=== PATIENT | male | born 1935 | race Caucasian/White ===

== ENCOUNTER → 2019-11-22 | Outpatient (CLI) | payer MEDICARE | END | disposition home or self-care (01) | LOC: CVU 08:41 | PROVIDERS: ATTEND Surgery | DX: I65.23 Occlusion and stenosis of bilateral carotid arteries (principal); I10 Essential (primary) hypertension | CPT/HCPCS: 93880 ==

== ENCOUNTER 2020-10-15 04:50 | Inpatient (IN) | payer MEDICARE ==
[~2020-10-15] VITALS: Ht 177.8 cm; Wt 70.9 kg
[2020-10-15] MEDS ORDERED: SODIUM CHLORIDE FLUSH 10ML SYR IVF ONE (05:30)
--- NOTE | 2020-10-15 05:38 | NUR ---
PT BIB [facility] FOR CP THAT "FELT LIKE WHEN I HAD A HEART ATTACK IN 1973". PT TOOK ONE OF HIS WIFES TRAMADOL AND WENT BACK TO BED AND THEN BECAME NAUSEAOUS AND POSITIVE LOC. PT IS AAOX4. NADN. CHEST PAIN IS RELIEVED. PT PLACED ON MONITOR. SIDE RAILS UP. CALL LIGHT IN REACH. WILL CONTINUE TO MONITOR.
[2020-10-15] MEDS: SODIUM CHLORIDE 0.9% 1,000 ML IV SCH ×2 (06:00→21:34)
[2020-10-15 06:03] LABS: BASOPHILS % (AUTO) 0 % (0-1); EOSINOPHILS % (AUTO) 0 % (1-7); LYMPHOCYTES % (AUTO) 9 % (22-44); MEAN CORPUSCULAR HEMOGLOBIN 31.4 pg (27.5-34.5); MEAN CORPUSCULAR HGB CONC 32.9 g/dL (33.2-36.2); MEAN PLATELET VOLUME 7.5 fL (7.4-10.4); MONOCYTES % (AUTO) 4 % (2-9); NEUTROPHILS % (AUTO) 88 % (42-75); PLATELET COUNT 368 x10^3/uL (130-400); RED BLOOD COUNT 3.61 x10^6/uL (4.38-5.82); RED CELL DISTRIBUTION WIDTH 17.9 % (9.4-14.8)
[2020-10-15 06:17] LABS: ALBUMIN 2.6 g/dL (3.4-5.0); ANION GAP 12 mmol/L (5-15); CALCIUM 9.7 mg/dL (8.5-10.1); CHLORIDE 99 mmol/L (98-107); CREATININE 1.86 mg/dL (0.7-1.3)
[2020-10-15] MEDS ORDERED: NITROGLYCERIN OINT 2%, 1GM TP ONE (06:30)
--- NOTE | 2020-10-15 06:40 | NUR ---
AT BEDSIDE. REPEAT EKG PERFORMED
--- NOTE | 2020-10-15 06:48 | NUR ---
CARE TRANSFERED. REPORT GIVEN TO KALEY LOTT
--- NOTE | 2020-10-15 06:48 | NUR ---
report from KALEY Alfred
[2020-10-15] MEDS ORDERED: SODIUM CHLORIDE FLUSH 10ML SYR IVF PRN (07:00)
--- NOTE | 2020-10-15 07:05 | NUR ---
PT RESTING ON GUXIAO, NADN/VSS. CALL LIGHT WITHIN REACH, BED IN LOWEST POSITION, BED RAILS UP X2. PT STATES NO NEEDS AT THIS TIME
--- NOTE | 2020-10-15 07:47 | NUR ---
REPORT TO KALEY COPELAND
[2020-10-15] MEDS ORDERED: morphine SULFATE 10 MG/ML, 1ML IVPush PRN (08:00)
[2020-10-15] MEDS ORDERED: POLYETHYLENE GLYCOL 17 GM PACKET PO PRN (08:00)
[2020-10-15] MEDS ORDERED: ONDANSETRON ODT 4 MG PO PRN (08:00)
[2020-10-15] MEDS ORDERED: ONDANSETRON 2MG/ML, 2ML IVPush PRN (08:00)
[2020-10-15] MEDS ORDERED: ACETAMINOPHEN 325 MG TABLET PO PRN (08:00)
--- NOTE | 2020-10-15 08:25 | NUR ---
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 pt undressed and belonings labeled. tri-color form initiated and consent signed. pt updated on POC and verbalized understanding report to Anusha ROCHE
[2020-10-15] MEDS ORDERED: HEPARIN 25,000 UNITS/250ML PMX 250 ML IV PRN (09:00)
[2020-10-15] MEDS ORDERED: HEPARIN 5,000 UNITS/ML, 1ML IV PRN (09:00)
[2020-10-15] MEDS: ASPIRIN 81 MG TABLET EC PO SCH (09:00)
[2020-10-15] MEDS: SENNA/DOCUSATE TABLET PO SCH (09:00)
[2020-10-15] MEDS ORDERED: HEPARIN 5,000 UNITS/ML, 1ML IV ONE (09:00)
[2020-10-15] MEDS: CARVEDILOL 3.125 MG TABLET PO SCH ×2 (09:00→17:50)
[2020-10-15 09:35] LABS: CHOL/HDL RATIO 2.3; CHOLESTEROL, TOTAL 54 mg/dL (140-239); HDL CHOL % 44 % (26-37); HDL CHOLESTEROL (DIRECT) 24 mg/dL (40-60); LDL CHOLESTEROL,CALCULATED 20 mg/dL (54-169); LDL/HDL RATIO 0.8 (0.5-3.0); TRIGLYCERIDES 52 mg/dL (50-200); VLDL CHOLESTEROL 10 mg/dL (0-25)
[2020-10-15] MEDS ORDERED: HEPARIN 25,000 UNITS/250ML PMX 250 ML ONE (09:56)
[2020-10-15] MEDS ORDERED: HEPARIN 5,000 UNITS/ML, 1ML ONE (09:56)
[2020-10-15] MEDS ORDERED: FURO20TA3 PO (13:18)
[2020-10-15] MEDS ORDERED: GUAI200T37 PO (13:38)
[2020-10-15] MEDS ORDERED: BENZ100C PO (13:38)
[2020-10-15] MEDS ORDERED: LISI10TA19 PO (13:38)
[2020-10-15] MEDS ORDERED: ATOR20TA86 PO (13:38)
[2020-10-15] MEDS ORDERED: MECO10005 PO (13:38)
[2020-10-15] MEDS ORDERED: APIX5TAB PO (13:38)
[2020-10-15 14:23] VITALS: BP 145/67
[2020-10-15] MEDS ORDERED: ALBU90AE2 INH (14:33)
[2020-10-15] MEDS ORDERED: EPLE50TA3 PO (14:33)
[2020-10-15] MEDS ORDERED: MOME220A9 INH (14:33)
[2020-10-15] MEDS ORDERED: VERAPAMIL 2.5 MG/ML, 2ML ONE (16:16)
[2020-10-15] MEDS ORDERED: FENTANYL PF 100 MCG/2ML ONE (16:16)
[2020-10-15] MEDS ORDERED: HEPARIN 1,000 UNITS/ML, 10ML ONE (16:17)
[2020-10-15] MEDS ORDERED: LIDOCAINE-MPF 1%, 5ML ONE (16:17)
[2020-10-15] MEDS ORDERED: BIVALIRUDIN 250 MG ONE (16:17)
[2020-10-15] MEDS ORDERED: MIDAZOLAM 1 MG/ML, 2ML ONE (16:34)
[2020-10-15] MEDS ORDERED: PHENYLEPHRINE 10 MG/ML ONE (17:29)
[2020-10-15] MEDS ORDERED: EPINEPHRINE SYRINGE 0.1 MG/ML, 10ML ONE (17:29)
[2020-10-15] MEDS ORDERED: FUROSEMIDE 40 MG/4 ML ONE (17:43)
[2020-10-15 21:54] VITALS: BP 123/57
[2020-10-16 01:34] VITALS: BP 104/63
[2020-10-16 04:52] LABS: BASOPHILS % (AUTO) 0 % (0-1); EOSINOPHILS % (AUTO) 0 % (1-7); LYMPHOCYTES % (AUTO) 11 % (22-44); MEAN CORPUSCULAR HEMOGLOBIN 31.4 pg (27.5-34.5); MEAN CORPUSCULAR HGB CONC 32.8 g/dL (33.2-36.2); MEAN PLATELET VOLUME 7.8 fL (7.4-10.4); MONOCYTES % (AUTO) 6 % (2-9); NEUTROPHILS % (AUTO) 83 % (42-75); PLATELET COUNT 349 x10^3/uL (130-400); RED BLOOD COUNT 3.69 x10^6/uL (4.38-5.82)
[2020-10-16 05:05] LABS: ALANINE AMINOTRANSFERASE 885 U/L (12-78); ALBUMIN 2.3 g/dL (3.4-5.0); ANION GAP 8 mmol/L (5-15); CALCIUM 8.5 mg/dL (8.5-10.1); CHLORIDE 99 mmol/L (98-107); CHOLESTEROL, TOTAL 55 mg/dL (140-239); CREATININE 1.59 mg/dL (0.7-1.3)
[2020-10-16 05:07] LABS: ALKALINE PHOSPHATASE 423 U/L (45-117); BILIRUBIN,TOTAL 0.9 mg/dL (0.2-1.0); CHOL/HDL RATIO 2.5; HDL CHOL % 40 % (26-37); HDL CHOLESTEROL (DIRECT) 22 mg/dL (40-60); LDL CHOLESTEROL,CALCULATED 19 mg/dL (54-169); LDL/HDL RATIO 0.9 (0.5-3.0); TOTAL PROTEIN 6.5 g/dL (6.4-8.2); TRIGLYCERIDES 72 mg/dL (50-200); VLDL CHOLESTEROL 14 mg/dL (0-25)
[2020-10-16] MEDS: CARVEDILOL 3.125 MG TABLET PO SCH ×2 (05:11→05:19)
[2020-10-16 05:21] VITALS: BP 100/41
[2020-10-16 08:00] VITALS: BP 102/59
[2020-10-16] MEDS ORDERED: CLOPIDOGREL 75 MG TABLET PO SCH (10:00)
[2020-10-16] MEDS: SENNA/DOCUSATE TABLET PO SCH (10:41)
[2020-10-16] MEDS: ASPIRIN 81 MG TABLET EC PO SCH (10:41)
[2020-10-16] MEDS ORDERED: CARV3.1212 PO (15:42)
[2020-10-16] MEDS ORDERED: CLOP75TA PO (15:42)
[2020-10-16] MEDS ORDERED: ATOR-2 PO (15:42)
[2020-10-16 15:50] VITALS: BP 92/53
[2020-10-16] MEDS ORDERED: FUROSEMIDE 20 MG TABLET ONE (17:52)
[2020-10-16] MEDS ORDERED: FUROSEMIDE 20 MG TABLET PO ONE (18:00)
[2020-10-16] MEDS ORDERED: FUROSEMIDE 20 MG/2 ML IV ONE (18:00)
[2020-10-16] MEDS ORDERED: ATORVASTATIN 80 MG TABLET PO SCH (21:00)
== END 2020-10-16 19:30 | disposition hospice, home (50) | DRG 280 ==
LOC: ED 07:24 → EDIP 07:28 → ICU 12:02
PROVIDERS: ADMIT Internal Medicine; ATTEND Family Medicine
PROC: 4A023N7 Measurement of Cardiac Sampling and Pressure, Left Heart, Percutaneous Approach (ICD-10-PCS; principal; 2020-10-15)
PROC: B2111ZZ Fluoroscopy of Multiple Coronary Arteries using Low Osmolar Contrast (ICD-10-PCS; 2020-10-15)
DX: I21.4 Non-ST elevation (NSTEMI) myocardial infarction (principal); I50.43 Acute on chronic combined systolic (congestive) and diastolic (congestive) heart failure; R57.0 Cardiogenic shock; D68.69 Other thrombophilia; I42.9 Cardiomyopathy, unspecified; I48.20 Chronic atrial fibrillation, unspecified; N17.9 Acute kidney failure, unspecified; I13.0 Hypertensive heart and chronic kidney disease with heart failure and stage 1 through stage 4 chronic kidney disease, or unspecified chronic kidney disease; I50.40 Unspecified combined systolic (congestive) and diastolic (congestive) heart failure; D64.9 Anemia, unspecified; D72.829 Elevated white blood cell count, unspecified; E78.5 Hyperlipidemia, unspecified; I07.1 Rheumatic tricuspid insufficiency; I25.10 Atherosclerotic heart disease of native coronary artery without angina pectoris; R09.02 Hypoxemia; Z66 Do not resuscitate; N18.2 Chronic kidney disease, stage 2 (mild); N40.0 Benign prostatic hyperplasia without lower urinary tract symptoms; I48.0 Paroxysmal atrial fibrillation; Z95.5 Presence of coronary angioplasty implant and graft; R74.01 Elevation of levels of liver transaminase levels; Z20.822 Contact with and (suspected) exposure to COVID-19; I25.2 Old myocardial infarction; Z90.79 Acquired absence of other genital organ(s); Z87.891 Personal history of nicotine dependence; Z83.3 Family history of diabetes mellitus; Z82.49 Family history of ischemic heart disease and other diseases of the circulatory system; Z80.0 Family history of malignant neoplasm of digestive organs; Z79.01 Long term (current) use of anticoagulants; Z88.5 Allergy status to narcotic agent
CPT/HCPCS: 36415; 71045; 80048; 80053; 80061; 82040; 83036; 83880; 84484; 85025; 85520; 92920; 93005; 93306; 93458; 96374; 99156; 99157; C1760; C1769; C1894; G0378; J0583; J1644; J1940; J2250; J3010; C1725; C1887; J2370; J7030; Q9967